=== PATIENT | female | born 2000 | race Caucasian/White ===

== ENCOUNTER 2023-11-04 16:43 | Emergency (ER) | payer OTHER ==
[~2023-11-04] VITALS: Ht 175.3 cm; Wt 66.9 kg
[2023-11-04] MEDS ORDERED: LAMI1TAB7 PO (16:54)
[2023-11-04] MEDS ORDERED: ESTA0.25 PO (16:54)
[2023-11-04] MEDS: LIDOCAINE 2% MDV 20ML VIAL SC ONE (18:40)
[2023-11-04] MEDS: CEPHALEXIN 500 MG CAP PO ONE (18:45)
[2023-11-04] MEDS: BOOSTRIX VACCINE (TETANUS/DIPHTH/ACEL. PERTUSSIS) 0.5ML SYR IM ONE (18:46)
[2023-11-04] MEDS ORDERED: CEPH500C PO (19:13)
[2023-11-04 19:58] VITALS: BP 139/71; TEMP 98.7; O2SAT 100
== END 2023-11-04 19:59 | disposition home or self-care (01) ==
LOC: M ED 16:43
DX: S61.211A Laceration without foreign body of left index finger without damage to nail, initial encounter (principal); Y92.9 Unspecified place or not applicable; Y93.9 Activity, unspecified; Y99.9 Unspecified external cause status; Z23 Encounter for immunization; Z79.2 Long term (current) use of antibiotics; Z79.890 Hormone replacement therapy